=== PATIENT | female | born 1995 | race American Indian/Alaskan Native ===

== ENCOUNTER 2017-08-13 00:13 | Emergency (ER) | payer SELFPAY ==
--- NOTE | 2017-08-13 07:27 | Emergency Department Report ---
HPI - General Chief Complaint: Headache Time Seen by Provider: 08/13/17 07:08 - HPI HPI: Patient here reports that she is having headache for the past 2 weeks, ear pain for the past week and now ears muffled. She says she has some nausea and inner thigh pain. Pain is 7 out of 10 to her forehead. She says she's been taking [id number] medication for cough and cold but nothing is helping. Denies any vomiting. Denies any shortness of breath or chest pain. She denies any fever or chills. Patient has no medical problems. Headache is episodic and it' s worse with coughing. She is reports facial pain. She said her pain is achy. Patient was also requested a test became she says she missed her cycle 2 weeks ED Past Medical Hx - Past Medical History Previous Medical History?: No - Surgical History Past Surgical History?: No - Family History Family history: no significant - Social History Smoking Status: Never Smoker Substance Use Type: None - Medications Home Medications: Home Medications Medication Instructions Recorded Confirmed Last Taken Type Amoxicillin [Amoxicillin TAB] 875 mg PO BID #20 tablet 08/13/17 Unknown Rx Cetirizine HCl [Zyrtec] 10 mg PO QAM #7 tablet 08/13/17 Unknown Rx ED Review of Systems ROS: Stated complaint: COLD SX Other details as noted in HPI Comment: All other systems reviewed and negative Constitutional: no symptoms reported Eyes: denies: eye pain, eye discharge ENT: congestion (ear congestion and nasal congestion.), other (facial pain and pressure). denies: ear pain, throat pain Respiratory: cough. denies: orthopnea, shortness of breath, SOB with exertion, SOB at rest, stridor, wheezing Cardiovascular: denies: chest pain, palpitations, edema, syncope Gastrointestinal: nausea. denies: abdominal pain, vomiting, diarrhea Genitourinary: abnormal menses. denies: urgency, dysuria, frequency, hematuria , discharge Musculoskeletal: myalgia. denies: back pain, arthralgia Skin: denies: rash Neurological: headache. denies: weakness, numbness, paresthesias, confusion, abnormal gait, vertigo Physical Exam - Physical Exam Vital Signs: Vital Signs 08/13/17 01:07 Temperature 99.3 F Pulse Rate 87 Respiratory 18 Rate Blood Pressure 118/68 O2 Sat by Pulse 100 Oximetry General: This is a 22-year-old female well-nourished well-developed in no acute distress Physical Exam: Head: Normocephalic, atraumatic, no abrasion, no bruising and no contusion. Eyes: Biateral pupils equal and reactive to light, bilateral EOM intact.. Bilateral conjunctival and sclera without injection, normal accommodation. No nystagmus Nose:Nasal mucosa congested with erythema and clear drainage. Positive frontal and meds or sinus tenderness. Neurological: GCS at 15, Pt is alert and oriented 3 speech is clear period. Bilateral hand flask fitter strong and equal. Normal gait. Negative Romberg and no pronator drift. Normal Reflexes. No motor or sensory deficit Neck: Supple, Positive Cervical adenopathy, full range of motion and no C-spine tenderness. No swelling or tracheal deviation normal reflexes Back: No vertebral tenderness, no paraspinal tenderness. The bend over and touch his toes without any difficulties. Ambulates without any difficulties Abdomen soft, nontender to palpation. No guarding no rebound tenderness and no CVA tenderness. Cardiovascular: S1, S2. Regular rate and rhythm. No murmur. Capillary refill is less then 3 seconds. Lungs: Positive cough with scattered wheezing to upper lung johnson. No rhonchi or rales. No use of accessory muscle. No chest wall tenderness MSK: Strength 5/5 in all extremities. No joint deformity or crepitus. Normal inspection. Full range of motion to all extremities Extremities: No clubbing, cyanosis or edema. +2 pulses. No neurovascular compromise Skin: Clean, dry and intact. No rash or lesions. ED Course Vital Signs 08/13/17 01:07 Temperature 99.3 F Pulse Rate 87 Respiratory 18 Rate Blood Pressure 118/68 O2 Sat by Pulse 100 Oximetry - Reevaluation(s) Reevaluation #1: 08/13/17 08:21 Patient received DuoNeb 1 nebulizing emergency room along with Deltasone 60 mg by mouth, codeine 10 mils by mouth. Further evaluation of lungs, her lungs has better after DuoNeb treatment. ED Medical Decision Making - Lab Data Lab Results 08/13/17 Range/Units 07:37 Urine HCG, Qual Positive A (Negative) - Medical Decision Making ED course: Patient here complaining of cold symptoms for 2 weeks that's getting worse. She denies any chest pain or shortness of breath. Physical findings for acute sinusitis, cough. Patient is also complaining of missing her period 2 weeks and requested a test . test came back after medication was given for positive . Patient was given codeine 10 mg syrup, Deltasone 60 mg by mouth and one half times one treatment in emergency room. I discussed with her diagnosis, results and treatment plan and she voiced understanding. 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 I encouraged her to start taking vitamin. I also encouraged her to flush her nostrils out with nasal saline to reduce congestion. Patient will be discharged home with prescription for amoxicillin and Zyrtec and to follow up with her primary care physician in 3 days and also her [facility] in 3 days. Pt discharge home with her family in stable condition. Critical care attestation.: If time is entered above; I have spent that time in minutes in the direct care of this critically ill patient, excluding procedure time. ED Disposition Clinical Impression: Cough in adult patient Acute sinusitis Qualifiers: Sinusitis location: unspecified location Recurrence: not specified as recurrent Qualified Code(s): J01.90 - Acute sinusitis, unspecified Qualifiers: Weeks of gestation: unspecified Qualified Code(s): Z34.90 - Encounter for supervision of normal , unspecified, unspecified trimester Disposition: DC-01 TO HOME OR SELFCARE Is pt being admited?: No Does the pt Need Aspirin: No Condition: Stable Instructions: (ED), Morning Sickness (ED), Acute Cough (ED), Sinusitis (ED) Additional Instructions: increase your fluid intake Take antibiotic as prescribed Flushnostrils with nasal saline wash Follow-up with your primary care physician in 3 days Follow up with [facility] in 3 days Start taking vitamin Prescriptions: Amoxicillin [Amoxicillin TAB] 875 mg PO BID #20 tablet Cetirizine HCl [Zyrtec] 10 mg PO QAM #7 tablet Referrals: PRIMARY CAREMD [Primary Care Provider] - 08/16/17 [facility] [Provider Group] - 08/16/17 Forms: Accompanied Note, Work/School Release Form(ED)
[2017-08-13] MEDS ORDERED: DUONEB *Not for PRN Use IH ONE (07:28)
[2017-08-13] MEDS ORDERED: TYLENOL/CODEINE PO ONE (07:28)
[2017-08-13] MEDS ORDERED: DELTASONE PO ONE (07:28)
[2017-08-13 08:37] VITALS: BP 115/59
== END 2017-08-13 08:54 | disposition home or self-care (01) ==
LOC: ED 00:13
DX: Z33.1 Pregnant state, incidental (principal); J01.10 Acute frontal sinusitis, unspecified; R51 Headache
CPT/HCPCS: 81025; 94640; 99283; J7512